=== PATIENT | male | born 1965 | race African-American/Black ===

== ENCOUNTER 2018-12-21 20:32 | Inpatient (IN) | payer MEDICAID ==
[~2018-12-21] VITALS: Ht 170.2 cm; Wt 62.2 kg
[2018-12-21 21:47] LABS: BASOPHILS % (AUTO) 0.2 % (0.0-2.0); EOSINOPHILS % (AUTO) 0.1 % (1.0-6.0); HEMATOCRIT 43.1 % (41-53); HEMOGLOBIN 14.3 g/dL (13.5-17.5); LYMPHOCYTES # (AUTO) 0.8 K/uL (1.0-4.8); LYMPHOCYTES % (AUTO) 7.7 % (22.0-44.0); MEAN CORPUSCULAR HEMOGLOBIN 27.6 pg (26.0-34.0); MEAN CORPUSCULAR HGB CONC 33.2 G/dL (31.0-37.0); MEAN CORPUSCULAR VOLUME 83 fL (80-100); MONOCYTES # (AUTO) 1.3 K/uL (0.1-1.0); MONOCYTES % (AUTO) 11.5 % (2.0-9.0); NEUTROPHILS # (AUTO) 8.8 K/uL (1.8-7.7); NEUTROPHILS % (AUTO) 80.5 % (40.0-70.0); PLATELET COUNT (AUTO) 216 K/uL (150-450); RED BLOOD CELL COUNT(AUTO) 5.17 MIL/uL (4.50-5.90); RED CELL DISTRIBUTION WIDTH 13.4 % (11.5-14.5)
[2018-12-21 21:57] LABS: ANION GAP 9 mmol/L (8-16); CALCIUM, TOTAL 8.6 mg/dL (8.8-10.5); CARBON DIOXIDE 29 mmol/L (22-29); CHLORIDE 90 mmol/L (98-107); CREATININE 1.44 mg/dL (0.60-1.30); GLOMERULAR FILTR. RATE CALC > 60 mL/min (>60); GLUCOSE,RANDOM 84 mg/dL (70-110); POTASSIUM 3.3 mmol/L (3.5-5.1); SODIUM SERUM 128 mmol/L (136-145); UREA NITROGEN, BLOOD 29 mg/dL (7-18)
[2018-12-21 22:03] LABS: ALANINE AMINOTRANSFERASE 268 U/L (12-78); ALBUMIN 3.7 g/dL (3.4-5.0); ALKALINE PHOSPHATASE 55 U/L (46-116); ASPARTATE AMINOTRANSFERASE 442 U/L (15-37); BILIRUBIN,TOTAL 1.6 mg/dL (0.1-1.0); TOTAL PROTEIN, SERUM 6.9 g/dL (6.4-8.2)
[2018-12-22] MEDS ORDERED: ZOLPIDEM TARTRATE 10 MG TABLET PO PRN
[2018-12-22] MEDS ORDERED: LORazepam 2 MG TABLET PO PRN
[2018-12-22] MEDS ORDERED: HALOPERIDOL 5 MG TABLET PO PRN
[2018-12-22] MEDS ORDERED: POTASSIUM CHLORIDE 20 MEQ ER TABLET PO ONE (00:45)
[2018-12-22 01:37] VITALS: BP 136/93
[2018-12-22 07:58] LABS: CHOL/HDL RATIO 2.3 (4.2-7.3)
[2018-12-22 08:00] VITALS: BP 132/87
[2018-12-22] MEDS ORDERED: HALOPERIDOL LACTATE 5 MG/ML VIAL ONE (10:24)
[2018-12-22] MEDS ORDERED: LORazepam 2 MG/ML VIAL ONE (10:24)
[2018-12-22] MEDS ORDERED: DiphenhydrAMINE HCL 50 MG/ML VIAL ONE (10:24)
[2018-12-22] MEDS ORDERED: HALOPERIDOL LACTATE 5 MG/ML VIAL IM ONE (10:25)
[2018-12-22] MEDS ORDERED: DiphenhydrAMINE HCL 50 MG/ML VIAL IM ONE (10:25)
[2018-12-22] MEDS ORDERED: LORazepam 2 MG/ML VIAL IM ONE (10:25)
[2018-12-22] MEDS: BACITRACIN 28.4 GM OINTMENT TP SCH (18:02)
[2018-12-22] MEDS ORDERED: OLANZapine 5 MG TABLET PO SCH (21:00)
[2018-12-23] MEDS: BACITRACIN 28.4 GM OINTMENT TP SCH (09:49)
[2018-12-23 10:12] VITALS: BP 126/84
[2018-12-23] MEDS ORDERED: OLAN5TAB27 PO (11:27)
== END 2018-12-23 12:30 | disposition home or self-care (01) | DRG 750 ==
LOC: EMS 20:34 → 3EI 23:30 → 3EC 12-22 18:00
DX: F20.9 Schizophrenia, unspecified (principal); E87.1 Hypo-osmolality and hyponatremia; E87.6 Hypokalemia; F15.90 Other stimulant use, unspecified, uncomplicated; F17.200 Nicotine dependence, unspecified, uncomplicated; N18.9 Chronic kidney disease, unspecified; Z59.0 Homelessness
CPT/HCPCS: G0480; J1200; J1630; J2060

== ENCOUNTER 2018-12-31 12:45 | Emergency (ER) | payer MEDICAID ==
[~2018-12-31] VITALS: Ht 170.2 cm; Wt 65.9 kg
[~2018-12-31 12:45] MED LIST: OLAN5TAB27 PO
[2018-12-31] MEDS ORDERED: HYDROCODONE/ACETAMINOPHEN 5-325 MG TABLET PO ONE (15:15)
[2018-12-31] MEDS ORDERED: POVIDONE-IODINE 10% 15 ML SOLUTION UD TP ONE (15:30)
[2018-12-31] MEDS ORDERED: LIDOCAINE 1% 10 ML VIAL INJ ONE (15:30)
[2018-12-31] MEDS ORDERED: ETHYL CHLORIDE 103.5 ML SPRAY TP ONE (16:15)
[2018-12-31] MEDS ORDERED: DOXYCYCLINE HYCLATE 100 MG CAPSULE PO ONE (17:00)
[2018-12-31 17:59] VITALS: BP 118/72
== END 2018-12-31 18:01 | disposition home or self-care (01) ==
LOC: EMS 12:48
DX: S61.200A Unspecified open wound of right index finger without damage to nail, initial encounter (principal); L03.011 Cellulitis of right finger; F17.210 Nicotine dependence, cigarettes, uncomplicated; F25.9 Schizoaffective disorder, unspecified; Z79.899 Other long term (current) drug therapy; W45.8XXA Other foreign body or object entering through skin, initial encounter; Y93.89 Activity, other specified; Y92.89 Other specified places as the place of occurrence of the external cause; Y99.8 Other external cause status
CPT/HCPCS: 10160; 73140; 99284; J3490

== ENCOUNTER 2019-01-21 21:31 | Emergency (ER) | payer MEDICAID ==
[~2019-01-21] VITALS: Ht 170.2 cm; Wt 65.9 kg
[2019-01-22 01:45] VITALS: BP 155/95
[2019-01-22] MEDS ORDERED: LIDOCAINE/PF 1% 2 ML VIAL IM ONE (01:45)
[2019-01-22] MEDS ORDERED: CefTRIAXone SODIUM 1 GM/VIAL IM ONE (01:45)
[2019-01-22] MEDS ORDERED: SULFAMETHOX/TRIMETH DS 800-160 MG/TABLET PO ONE (01:45)
== END 2019-01-22 02:12 | disposition home or self-care (01) ==
LOC: EMS 21:32
DX: L02.415 Cutaneous abscess of right lower limb (principal); L02.416 Cutaneous abscess of left lower limb; L02.215 Cutaneous abscess of perineum
CPT/HCPCS: 96372; 99283; J0696; J3490

== ENCOUNTER 2019-01-26 19:27 | Emergency (ER) | payer MEDICAID ==
[~2019-01-26] VITALS: Ht 170.2 cm; Wt 65.9 kg
[2019-01-26] MEDS ORDERED: BACITRACIN 0.9 GM PACKET OINTMENT TP ONE (21:45)
[2019-01-26] MEDS ORDERED: LIDOCAINE 1% 10 ML VIAL INJ ONE (21:45)
[2019-01-26] MEDS ORDERED: DOXYCYCLINE HYCLATE 100 MG CAPSULE PO ONE (21:45)
[2019-01-26 23:05] VITALS: BP 123/80
== END 2019-01-26 23:29 | disposition home or self-care (01) ==
LOC: EMS 19:28
DX: L02.415 Cutaneous abscess of right lower limb (principal)
CPT/HCPCS: 10060; 99284; J3490

== ENCOUNTER 2019-02-17 13:13 | Emergency (ER) | payer MEDICAID ==
[~2019-02-17] VITALS: Ht 170.2 cm; Wt 65.9 kg
[2019-02-17 14:54] LABS: BASOPHILS % (AUTO) 0.8 % (0.0-2.0); EOSINOPHILS % (AUTO) 1.3 % (1.0-6.0); HEMATOCRIT 39.2 % (41-53); HEMOGLOBIN 13.1 g/dL (13.5-17.5); LYMPHOCYTES # (AUTO) 1.1 K/uL (1.0-4.8); LYMPHOCYTES % (AUTO) 14.6 % (22.0-44.0); MEAN CORPUSCULAR HEMOGLOBIN 27.8 pg (26.0-34.0); MEAN CORPUSCULAR HGB CONC 33.3 G/dL (31.0-37.0); MEAN CORPUSCULAR VOLUME 83 fL (80-100); MONOCYTES # (AUTO) 0.6 K/uL (0.1-1.0); MONOCYTES % (AUTO) 8.3 % (2.0-9.0); NEUTROPHILS # (AUTO) 5.6 K/uL (1.8-7.7); PLATELET COUNT (AUTO) 298 K/uL (150-450); RED BLOOD CELL COUNT(AUTO) 4.71 MIL/uL (4.50-5.90)
[2019-02-17 15:12] LABS: ANION GAP 9 mmol/L (8-16); CALCIUM, TOTAL 8.6 mg/dL (8.8-10.5); CARBON DIOXIDE 27 mmol/L (22-29); CHLORIDE 102 mmol/L (98-107); CREATININE 1.09 mg/dL (0.60-1.30); GLOMERULAR FILTR. RATE CALC > 60 mL/min (>60); GLUCOSE,RANDOM 82 mg/dL (70-110); POTASSIUM 3.9 mmol/L (3.5-5.1); SODIUM SERUM 138 mmol/L (136-145); UREA NITROGEN, BLOOD 12 mg/dL (7-18)
[2019-02-17 15:20] LABS: ALANINE AMINOTRANSFERASE 32 U/L (12-78); ALBUMIN 3.5 g/dL (3.4-5.0); ALKALINE PHOSPHATASE 50 U/L (46-116); ASPARTATE AMINOTRANSFERASE 27 U/L (15-37); BILIRUBIN,TOTAL 0.5 mg/dL (0.1-1.0)
[2019-02-17] MEDS ORDERED: PERTUSS(ACELL),DIPH,TET VAC/PF 0.5 ML VIAL IM ONE (16:45)
[2019-02-17 18:36] LABS: AMPHET/METH SCREEN,URINE POSITIVE (NEGATIVE); BARBITURATE SCREEN, URINE NEGATIVE (NEGATIVE); BENZODIAZEPINES SCREEN,URINE NEGATIVE (NEGATIVE); CANNABINOID SCREEN,URINE POSITIVE (NEGATIVE); COCAINE SCREEN,URINE POSITIVE (NEGATIVE); METHADONE SCREEN, URINE NEGATIVE (NEGATIVE); OPIATE SCREEN,URINE NEGATIVE (NEGATIVE)
[2019-02-17 18:37] LABS: PHENCYCLIDINE SCREEN,URINE NEGATIVE (NEGATIVE)
[2019-02-17 19:45] VITALS: BP 16/82
== END 2019-02-17 20:05 | disposition home or self-care (01) ==
LOC: EMS 13:14
DX: F20.9 Schizophrenia, unspecified (principal); F22 Delusional disorders; F29 Unspecified psychosis not due to a substance or known physiological condition; F15.10 Other stimulant abuse, uncomplicated
CPT/HCPCS: 36415; 73130; 80053; 80307; 85025; 90471; 90715; 99284; G0480

== ENCOUNTER 2019-07-02 17:17 | Emergency (ER) | payer MEDICAID ==
[~2019-07-02] VITALS: Ht 170.2 cm; Wt 64.5 kg
[2019-07-02] MEDS ORDERED: LORazepam 2 MG/ML VIAL IM ONE (18:15)
[2019-07-02] MEDS ORDERED: HALOPERIDOL LACTATE 5 MG/ML VIAL IM ONE (18:15)
[2019-07-02] MEDS ORDERED: DiphenhydrAMINE HCL 50 MG/ML VIAL IM ONE (18:15)
[2019-07-02 22:00] VITALS: BP 153/96
== END 2019-07-02 22:15 | disposition home or self-care (01) ==
LOC: EMS 17:18
DX: F15.151 Other stimulant abuse with stimulant-induced psychotic disorder with hallucinations (principal)
CPT/HCPCS: 96372; 99284; J1200; J1630; J2060

== ENCOUNTER 2020-10-27 17:41 | Emergency (ER) | payer MEDICAID, OTHER ==
[~2020-10-27] VITALS: Ht 170.2 cm; Wt 65.9 kg
[2020-10-27] MEDS ORDERED: ACETAMINOPHEN 500 MG TABLET PO ONE (19:15)
[2020-10-27] MEDS ORDERED: KETOROLAC TROMETHAMINE 30 MG/ML VIAL IM ONE (19:15)
[2020-10-27] MEDS ORDERED: LIDOCAINE 5% TRANSDERMAL PATCH TD ONE (19:15)
[2020-10-27 20:00] VITALS: BP 127/78
== END 2020-10-27 23:22 | disposition home or self-care (01) ==
LOC: EMS 17:48
DX: S22.32XA Fracture of one rib, left side, initial encounter for closed fracture (principal); F20.9 Schizophrenia, unspecified; F14.90 Cocaine use, unspecified, uncomplicated; F12.90 Cannabis use, unspecified, uncomplicated; F19.90 Other psychoactive substance use, unspecified, uncomplicated; X50.1XXA Overexertion from prolonged static or awkward postures, initial encounter; Y93.89 Activity, other specified; Y92.89 Other specified places as the place of occurrence of the external cause; Y99.8 Other external cause status
CPT/HCPCS: 71101; 96372; 99283; G0238; J1885